=== PATIENT | male | born 1955 | race Two or more races ===

== ENCOUNTER 2019-09-29 17:54 | Inpatient (IN) | payer MEDICARE, MEDICAID ==
[~2019-09-29] VITALS: Ht 170.2 cm; Wt 89.5 kg
--- NOTE | 2019-09-29 18:00 | NUR ---
"Pain in back-front started couple days ago now pain worse. Dark colored urine. Hx kidney stones" pt [id number], -sob, nad noted, vss ,pending md patterson
[2019-09-29 18:19] LABS: APPEARANCE,URINE Cloudy (CLEAR); BILIRUBIN,URINE Negative (NEGATIVE); BLOOD, URINE Large Ery/uL (NEGATIVE); COLOR,URINE Yellow (YELLOW); KETONES,URINE Negative (NEGATIVE); LEUKOCYTE ESTERASE ,URINE Small (NEGATIVE); NITRITE, URINE Positive (NEGATIVE); PH,URINE 6.5 (5.0-8.0); PROTEIN,URINE >=300 mg/dl (NEGATIVE); UGLUCOSE Negative (NEGATIVE)
[2019-09-29 18:26] LABS: BASOPHILS % (AUTO) 0.4 % (0.0-2.0); HEMATOCRIT 35 % (39-51); HEMOGLOBIN 11.4 g/dL (13.5-17.5); LYMPHOCYTES # (AUTO) 1.1 /CMM (0.8-4.8); LYMPHOCYTES % (AUTO) 9.1 % (20.0-44.0); MEAN CORPUSCULAR HGB CONC 33 g/dl (31.0-36.0); MEAN CORPUSCULAR VOLUME 93 fL (80-96); MONOCYTES % (AUTO) 8.3 % (2.0-12.0); NEUTROPHILS # (AUTO) 9.9 /CMM (1.8-8.9); NEUTROPHILS % (AUTO) 81.2 % (43.0-81.0); PLATELET COUNT (AUTO) 233 /CMM (150-450); RED BLOOD CELL COUNT(AUTO) 3.74 MIL/uL (4.5-6.0); WHITE BLOOD COUNT (AUTO) 12.2 K/uL (4.3-11.0)
[2019-09-29] MEDS ORDERED: IV NS 0.9% 1,000 ML BAG IV ONE (18:30)
[2019-09-29 18:42] LABS: BACTERIA,URINE 4+ /HPF (None Seen); RBC,URINE 51-80 /HPF (0-2); SQUAMOUS EPITHELIAL CELL,UR Few /HPF (None Seen); WBC,URINE 21-50 /HPF (0-3)
[2019-09-29 18:47] LABS: CALCIUM, SERUM 9.3 mg/dL (8.5-10.1); CARBON DIOXIDE 21 mmol/L (21-32); CHLORIDE 99 mmol/L (98-107); CREATININE 1.1 mg/dL (0.6-1.3); GLUCOSE 170 mg/dL (74-106); SODIUM SERUM 133 mmol/L (136-145); UREA NITROGEN, BLOOD 15 mg/dL (7-18)
[2019-09-29 18:52] LABS: ALANINE AMINOTRANSFERASE 23 U/L (12-78); ALBUMIN 3.3 g/dL (3.4-5.0); ALKALINE PHOSPHATASE 88 U/L (46-116); ASPARTATE AMINOTRANSFERASE 23 U/L (15-37); BILIRUBIN,DIRECT 0.1 mg/dL (0.0-0.2); BILIRUBIN,TOTAL 0.2 mg/dL (0.2-1.0); TOTAL PROTEIN, SERUM 7.7 g/dL (6.4-8.2)
[2019-09-29] MEDS ORDERED: CEFTRIAXONE 1GM BAG (ER ONLY) 1 GM/50 ML PIGGYBACK IV ONE (19:00)
[2019-09-29] MEDS ORDERED: IV NS 0.9% 1,000 ML IV ONE (19:00)
--- NOTE | 2019-09-29 19:00 | NUR ---
CALLED FOR TELE BED
[2019-09-29] MEDS ORDERED: ACETAMINOPHEN 325 MG TABLET ONE (19:18)
[2019-09-29] MEDS ORDERED: CEFTRIAXONE 1GM BAG (ER ONLY) 50 ML IV ONE (19:18)
[2019-09-29] MEDS ORDERED: ACETAMINOPHEN 325 MG TABLET PO ONE (19:30)
--- NOTE | 2019-09-29 19:50 | NUR ---
EPIC DR VINCENT PAGED
--- NOTE | 2019-09-29 20:01 | NUR ---
DR. MENDEZ ON THE PHONE WITH DR. VINCENT
--- NOTE | 2019-09-29 20:23 | NUR ---
RECIEVED BED 315-1
[2019-09-29] MEDS ORDERED: MAGNESIUM HYDROXIDE 30 ML UDC PO PRN (20:30)
[2019-09-29] MEDS ORDERED: ZOLPIDEM TARTRATE 5 MG TABLET PO PRN (20:30)
[2019-09-29] MEDS ORDERED: ACETAMINOPHEN 325 MG TABLET PO PRN (20:30)
[2019-09-29] MEDS ORDERED: MAG HYDROX/AL HYDROX/SIMETH 30 ML UDC PO PRN (20:30)
[2019-09-29] MEDS ORDERED: HYDROCODONE/APAP 5/325MG 1 EACH TABLET PO PRN (20:30)
[2019-09-29] MEDS ORDERED: ONDANSETRON HCL/PF 4 MG/2 ML VIAL IVP PRN (20:30)
[2019-09-29] MEDS ORDERED: Z GUARD REMEDY 2 OZ OINT TP PRN (20:30)
--- NOTE | 2019-09-29 20:36 | NUR ---
REPORT GIVEN TO SHANTHI SMIHT FOR SEAN PT WILL BE TRANSPORTED TO 3RD FLOOR
--- NOTE | 2019-09-29 21:08 | NUR ---
PT TRANSFERRED TO MS BED 315
[2019-09-29 21:15] VITALS: BP 126/66
--- NOTE | 2019-09-29 21:19 | NUR ---
PT TRANSPORTED TO 3RD FLOOR
--- NOTE | 2019-09-29 21:20 | NUR ---
[employer] NOTES PATIENT ARRIVED ON THE UNIT AT 2114 VIA WHEELCHAIR, THEN AMBULATED TO BED WITH STEADY GAIT. DX WITH SEPSIS SECONDARY TO UTI. NO IV FLUIDS HUNG YET. PATIENT AND SIGNIFICANT OTHER, RENETTA, STATE SKIN IS INTACT, REFUSES TO DO FULL SKIN ASSESSMENT. PATIENT IS A/O X 4. NO SIGNS OF RESPIRATORY DISTRESS. RESPIRATIONS EVEN AND UNLABORED WITH EQUAL RISE AND FALL OF CHEST. IV SITE LEFT ANTECUBITAL G20 INTACT AND PATENT, NO INFECTION/INFILTRATION. ON TELE MONITOR: SINUS RHYTHM 73. PATIENT DENIES PAIN WHEN ASKED. PATIENT ABLE TO AMBULATE TO RESTROOM TO URINATE WITH STEADY GAIT. VITALS UPON ADMISSION: BP 126/66, PULSE 72, RESP 20, TEMP 98.0, O2 SAT 97% ON RA. PATIENT WISHES TO BE FULL CODE. SIGNIFICANT OTHER, JAM, AT BED SIDE. BELONGINGS CHECKED BY ASSIGNED CONSTRUCTION MATERIALS TESTER. SAFETY PRECAUTIONS IMPLEMENTED; CALL LIGHT WITHIN REACH, BED LOWEST POSITION, BED LOCKED, BILATERAL UPPER SIDE RAILS UP. WILL CONTINUE TO MONITOR AND CARRY OUT ORDERS.
[2019-09-29] MEDS: CEFTRIAXONE 1 G in IV D5W 50 ML IV SCH (21:30)
[2019-09-29 21:45] VITALS: BP 126/66
--- NOTE | 2019-09-29 21:50 | NUR ---
RN NOTES 7330 DR. VINCENT AT BED SIDE SPEAKING TO SIGNIFICANT OTHER AND FAMILY.
--- NOTE | 2019-09-29 22:05 | NUR ---
RN NOTES CALLED [facility]FORATOR [facility] TO VERIFY MEDICATIONS. THEY SAY THEY CANNOT VERIFY DUE TO A SYSTEM MALFUNCTION AT THIS TIME. MEDICATIONS STILL NOT VERIFIED, CHARGE NURSE AWARE, SHE WILL INFORM NURSING BOARD MACHINE SET UP OPERATOR. PER CHARGE NURSEKIKI WILL OVERRIDE MEDICATION. CHARGE NURSEKIKI, STATES TO ADMINISTER THE NS AND ADMINISTER THE ANTIBIOTIC SHE PREPARED FOR THE PATIENT. WILL GO AHEAD AND ADMINISTER IVF PER CHARGE NURSE.
[2019-09-29] MEDS ORDERED: CEFTRIAXONE 1 G VIAL ONE (22:20)
[2019-09-29] MEDS: IV NS 0.9% 1,000 ML IV SCH (23:54)
[2019-09-30] VITALS (8 sets, daily range): BP systolic 135–160; BP diastolic 65–86
[2019-09-30] MEDS: IV NS 0.9% 1,000 ML IV SCH ×3 (04:29→20:32)
--- NOTE | 2019-09-30 04:41 | NUR ---
RN NOTES PATIENT REQUESTED NORCO FOR PAIN 7/10 LOWER BACK. EXPLAINED THE RISKS OF TAKING NORCO. PATIENT UNDERSTANDS THE RISKS.
--- NOTE | 2019-09-30 06:35 | NUR ---
RN CLOSING NOTES PATIENT ASLEEP, RESTING IN BED, EASILY AROUSABLE. NO SIGNS OF RESPIRATORY DISTRESS. RESPIRATIONS EVEN AND UNLABORED WITH EQUAL RISE AND FALL OF CHEST. IV SITE REMAINS INTACT AND PATENT, IVF IN PLACE ORDERED, NO INFILTRATION/INFECTION NOTED. NO SIGNS OF FACIAL GRIMACING INDICATING PAIN/DISCOMFORT AT THIS TIME. PATIENT IS AFEBRILE. SAFETY PRECAUTIONS IMPLEMENTED; CALL LIGHT WITHIN REACH, BED LOWEST POSITION, BED LOCKED, BILATERAL UPPER SIDE RAILS UP. WILL CONTINUE TO MONITOR AND THEN WILL ENDORSE TO DAYSHIFT NURSE FOR CONTINUITY OF CARE.
[2019-09-30 07:14] LABS: BASOPHILS % (AUTO) 0.4 % (0.0-2.0); EOSINOPHILS % (AUTO) 1.2 % (0.0-6.0); HEMATOCRIT 31 % (39-51); HEMOGLOBIN 10.2 g/dL (13.5-17.5); LYMPHOCYTES # (AUTO) 1.1 /CMM (0.8-4.8); LYMPHOCYTES % (AUTO) 12.4 % (20.0-44.0); MEAN CORPUSCULAR HGB CONC 33 g/dl (31.0-36.0); MEAN CORPUSCULAR VOLUME 92 fL (80-96); MONOCYTES # (AUTO) 1.1 /CMM (0.1-1.30); MONOCYTES % (AUTO) 12.5 % (2.0-12.0); NEUTROPHILS # (AUTO) 6.6 /CMM (1.8-8.9); NEUTROPHILS % (AUTO) 73.5 % (43.0-81.0); PLATELET COUNT (AUTO) 212 /CMM (150-450); RED BLOOD CELL COUNT(AUTO) 3.32 MIL/uL (4.5-6.0)
[2019-09-30 07:39] LABS: CALCIUM, SERUM 8.4 mg/dL (8.5-10.1); CARBON DIOXIDE 24 mmol/L (21-32); CHLORIDE 103 mmol/L (98-107); CREATININE 0.9 mg/dL (0.6-1.3); GLUCOSE 130 mg/dL (74-106); MAGNESIUM 1.5 mg/dL (1.8-2.4); PHOSPHORUS 2.2 mg/dL (2.5-4.9); POTASSIUM 3.7 mmol/L (3.5-5.1); SODIUM SERUM 134 mmol/L (136-145); UREA NITROGEN, BLOOD 12 mg/dL (7-18)
--- NOTE | 2019-09-30 07:46 | NUR ---
RN Notes Patient resting in bed, supine position; No complaints of any pain/discomfort, NS running at 125 ml/hr on left arm; Call light within reach.
[2019-09-30 07:54] LABS: CHOLESTEROL 149 mg/dL (<200); FERRITIN 96 ng/mL (8-388); LDL 98 mg/dL (0-99); TRIGLYCERIDES 192 mg/dL (30-150)
[2019-09-30 07:56] LABS: HDL CHOLESTEROL < 10 mg/dL (40-60)
[2019-09-30 08:12] LABS: IRON, SERUM 15 ug/dl (50-175); TOTAL IRON BINDING CAPACITY 289 ug/dl (250-450)
[2019-09-30] MEDS: Magnesium 1GM/D5W 100ML PREMIX 100 ML IV SCH ×2 (10:18→11:40)
[2019-09-30] MEDS ORDERED: K PHOS NEUTRAL 250 MG TABLET PO ONE (13:00)
--- NOTE | 2019-09-30 18:42 | NUR ---
RN NOTES PT NOTED WITH LOW LEVEL MAGNESIUM 1.5 TODAY. ADMINISTERED MAGNESIUM 1G/100ML D5W IVPB X 2 DOSES ORDERED. WILL CONTINUE TO MONITOR.
--- NOTE | 2019-09-30 18:46 | NUR ---
MS RN CLOSING NOTES PATIENT IN BED AWAKE AND WATCHING TV AT THIS TIME WITH SIGNIFICANT OTHER AT BEDSIDE. A/O X4, SAME ABLE TO MAKE NEEDS KNOWN. ON ROOM AIR, TOLERATING WELL WITH NO SIGNS OF RESPIRATORY DISTRESS NOTED THROUGHOUT THE DAY. IV ACCESS @ LAC G# 20 INTACT AND PATENT, IVF OF NS @ 125ML/HR INFUSING WELL, NO S/S OF INFILTRATIONS NOTED AT SITE. ALL NEEDS AND CARE ATTENDED WELL. SAFETY MEASURES MAINTAINED: CALL LIGHT WITHIN REACH, BED IN LOWEST LOCKED POSITION WITH UPPER SIDE RAILS UP. WILL ENDORSE TO COMMUNITY HEALTH PROMOTER NURSE FOR CONTINUITY OF CARE
--- NOTE | 2019-09-30 19:24 | NUR ---
MS RN RECEIVE PT IN BED A/O X 3 AWAKE, FAMILY AT BEDSIDE STABLE AND NOT IN DISTRESS SAFETY MEASURES AT ALL TIMES WILL CONT TO MTR
[2019-09-30] MEDS: CEFTRIAXONE 1 G in IV D5W 50 ML IV SCH (20:06)
[2019-10-01] MEDS: IV NS 0.9% 1,000 ML IV SCH (04:48)
--- NOTE | 2019-10-01 06:10 | NUR ---
MS RN PT ASLEEP AND EASILY AWAKEN, NO C/O OF PAIN AT THIS TIME. NEEDS ATTENDED AND ANTICIPATED. KEPT CLEAN, DRY AND COMFORTABLE AT ALL TIMES. RESPIRATIONS EVEN AND UNLABORED. SAFETY MEASURES AT ALL TIMES. WILL ENDORSE NEXT SHIFT POC.
--- NOTE | 2019-10-01 07:10 | NUR ---
MS RN NOTES RECEIVED PT IN BED, AWAKE. A/O X3-4. HUNGARIAN SPEAKING BUT SIGNIFICANT OTHER AT BEDSIDE AND CAN UNDERSTAND [place]. PT TOLERATING RA, WITH NO ACUTE RESPIRATORY DISTRESS NOTED. PT DENIES ANY PAIN OR DISCOMFORT AT THIS TIME. PT DENIES ANY CONCERNS OR QUESTIONS WELL AT THIS MOMENT. IVF NS @ 125ML/HR TO LACG20, INTACT AND FLUID INFUSING WELL. PT KEPT COMFORTABLE. CALL LIGHT KEPT WITHIN REACH. PT'S BED IN LOWEST, LOCKED POSITION WITH SR X3. WILL CONTINUE PLAN OF CARE.
[2019-10-01] MEDS ORDERED: IV NS 0.9% 1,000 ML IV PRN (07:46)
[2019-10-01 08:00] VITALS: BP 170/93
[2019-10-01 08:02] LABS: CALCIUM, SERUM 8.7 mg/dL (8.5-10.1); CREATININE 0.8 mg/dL (0.6-1.3); MAGNESIUM 1.8 mg/dL (1.8-2.4); PHOSPHORUS 3.2 mg/dL (2.5-4.9); POTASSIUM 4.1 mmol/L (3.5-5.1)
[2019-10-01] MEDS ORDERED: VALSARTAN 80 MG TABLET PO SCH (11:30)
[2019-10-01] MEDS ORDERED: FAMO40TA7 PO (11:33)
[2019-10-01] MEDS ORDERED: ATOR40TA PO (11:33)
[2019-10-01] MEDS ORDERED: GABA-534 PO (11:33)
[2019-10-01] MEDS ORDERED: TRAM50TA2 PO (11:33)
[2019-10-01] MEDS ORDERED: TAMS-12 PO (11:33)
[2019-10-01] MEDS ORDERED: SERT100T12 PO (11:33)
[2019-10-01] MEDS ORDERED: ALPR0.255 PO (11:33)
[2019-10-01] MEDS ORDERED: VALS320T16 PO (11:33)
--- NOTE | 2019-10-01 13:20 | NUR ---
MS RN NOTES US OF KIDNEYS RESULTED AND FORWARDED TO DR EDGAR LIAO. NO NEW ORDERS NOTED AT THIS TIME. PT AND AT BEDSIDE MADE AWARE OF REGIONAL SALES COORDINATOR/TS' RESPONSE. PT CAN GO HOME TODAY LATER THIS AFTERNOON.
[2019-10-01] MEDS ORDERED: SOD FERRIC GLUC 125 MG in IV NS 0.9% 100 ML IV SCH (14:00)
[2019-10-01 16:00] VITALS: BP 148/75
[2019-10-01] MEDS ORDERED: CEPH-569 PO (16:16)
--- NOTE | 2019-10-01 16:55 | NUR ---
MS ELECTRONIC DIE MAKER NOTES PT TO BE DISCHARGED HOME. PT IN BED. AWAKE. A/O X3-4. GERMAN SPEAKING BUT SIGNIFICANT OTHER AT BEDSIDE AND CAN UNDERSTAND LIBERIAN. PT TOLERATING RA, WITH NO ACUTE RESPIRATORY DISTRESS NOTED. PT DENIES ANY PAIN OR DISCOMFORT AT THIS TIME. PIV TO LAC REMOVED AND APPLIED DRESSING. ALL NEEDS AND CARE PROVIDED AND ATTENDED. SKIN INTACT, NO PICTURES TAKEN AND FILED ON THE CHART. DISCHARGE INSTRUCTIONS AND INVENTORY LIST, SIGNED BY . ALL BELONGINGS WITH PT. PT LEFT THE UNIT AT 1645. HOSPITALIST/CALENDER RUNNER/TS AND CN/VIKAS AWARE OF DISCHARGE.
== END 2019-10-01 16:40 | disposition home or self-care (01) | DRG 872 ==
LOC: ER 17:58 → TELE 20:43 → MED 09-30 14:59
PROVIDERS: ADMIT Family Medicine; ATTEND Nurse Practitioner Acute Care
DX: A41.9 Sepsis, unspecified organism (principal); N39.0 Urinary tract infection, site not specified; E44.1 Mild protein-calorie malnutrition; E87.1 Hypo-osmolality and hyponatremia; E87.2 Acidosis; I10 Essential (primary) hypertension; B96.20 Unspecified Escherichia coli [E. coli] as the cause of diseases classified elsewhere; D50.9 Iron deficiency anemia, unspecified; D72.829 Elevated white blood cell count, unspecified; R73.9 Hyperglycemia, unspecified; E88.09 Other disorders of plasma-protein metabolism, not elsewhere classified; E86.1 Hypovolemia; Z68.30 Body mass index [BMI] 30.0-30.9, adult
CPT/HCPCS: 36415; 71045-TC; 76770-TC; 80048-TC; 80061-TC; 80076-TC; 81000-TC; 82728-TC; 83540-TC; 83605-TC; 83735-TC; 84100-TC; 84484-TC; 85025-TC; 85730-TC; 87040-TC; 87081-TC; 87086-TC; 87186-TC; G0378; J0696; J2916; J3475; J7030; J7060

== ENCOUNTER 2019-10-04 18:45 | Emergency (ER) | payer MEDICAID, MEDICARE ==
[~2019-10-04] VITALS: Ht 170.2 cm; Wt 90.3 kg
[~2019-10-04 18:45] MED LIST: ALPR0.255 PO; ATOR40TA PO; CEPH-569 PO; FAMO40TA7 PO; GABA-534 PO; SERT100T12 PO; TAMS-12 PO; TRAM50TA2 PO; VALS320T16 PO
[2019-10-04 18:58] VITALS: BP 159/61
[2019-10-04] MEDS ORDERED: CEFTRIAXONE 500 MG VIAL ONE (20:19)
[2019-10-04] MEDS ORDERED: LIDOCAINE /MPF 1% VIAL 5 ML VIAL ONE (20:20)
[2019-10-04] MEDS ORDERED: CEFTRIAXONE 500 MG VIAL IM ONE (20:30)
== END 2019-10-04 21:02 | disposition home or self-care (01) ==
LOC: ER 18:47
DX: L03.114 Cellulitis of left upper limb (principal); I10 Essential (primary) hypertension; Z79.899 Other long term (current) drug therapy
CPT/HCPCS: 93971; 96372; 99284; J0696; J3490

== ENCOUNTER 2019-11-09 12:37 | Inpatient (IN) | payer MEDICARE, MEDICAID ==
[~2019-11-09] VITALS: Ht 182.9 cm; Wt 81.6 kg
[2019-11-09] MEDS ORDERED: MORPHINE SULFATE INJ 2 MG/ML DISP.SYRIN IV ONE (13:00)
[2019-11-09] MEDS ORDERED: ONDANSETRON HCL/PF 4 MG/2 ML VIAL IVP ONE (13:00)
[2019-11-09] MEDS ORDERED: IV NS 0.9% 1,000 ML BAG IV ONE (13:00)
--- NOTE | 2019-11-09 13:15 | NUR ---
PATIENT ARRIVED AT UNIT WITH C/O R FLANK PAIN WITH HEMATURIA AND FEVER SINCE YESTERDAY. ACCOMPANIED BY . WILL CONTINUE TO MONITOR
[2019-11-09 13:20] LABS: BASOPHILS # (AUTO) 0.1 /CMM (0.0-0.2); BASOPHILS % (AUTO) 0.3 % (0.0-2.0); EOSINOPHILS % (AUTO) 0.3 % (0.0-6.0); HEMATOCRIT 32 % (39-51); HEMOGLOBIN 10.6 g/dL (13.5-17.5); LYMPHOCYTES # (AUTO) 2.1 /CMM (0.8-4.8); LYMPHOCYTES % (AUTO) 11.5 % (20.0-44.0); MEAN CORPUSCULAR HGB CONC 33 g/dl (31.0-36.0); MEAN CORPUSCULAR VOLUME 91 fL (80-96); MONOCYTES # (AUTO) 1.3 /CMM (0.1-1.30); NEUTROPHILS # (AUTO) 14.7 /CMM (1.8-8.9); NEUTROPHILS % (AUTO) 80.9 % (43.0-81.0); PLATELET COUNT (AUTO) 346 /CMM (150-450); RED BLOOD CELL COUNT(AUTO) 3.54 MIL/uL (4.5-6.0); WHITE BLOOD COUNT (AUTO) 18.2 K/uL (4.3-11.0)
--- NOTE | 2019-11-09 13:20 | NUR ---
IV LINE ESTABLISHED. ELECTROMECHANISMS DESIGN DRAFTER AT BEDSIDE FOR BLOOD DRAW
--- NOTE | 2019-11-09 13:21 | NUR ---
URINE COLLECTED AND SENT TO LAB
[2019-11-09 13:27] LABS: APPEARANCE,URINE Cloudy (CLEAR); BILIRUBIN,URINE Negative (NEGATIVE); BLOOD, URINE Large Ery/uL (NEGATIVE); COLOR,URINE Dark (YELLOW); KETONES,URINE Negative (NEGATIVE); LEUKOCYTE ESTERASE ,URINE Small (NEGATIVE); NITRITE, URINE Negative (NEGATIVE); PH,URINE 5.5 (5.0-8.0); PROTEIN,URINE >=300 mg/dl (NEGATIVE); UGLUCOSE Negative (NEGATIVE); UROBILINOGEN,URINE 0.2 EU/dL (0.2)
[2019-11-09] MEDS ORDERED: PIPERACILLIN /TAZOBACTAM 3.375 G in IV D5W 50 ML IV ONE (13:30)
[2019-11-09 13:31] LABS: CALCIUM, SERUM 9.2 mg/dL (8.5-10.1); CREATININE 0.8 mg/dL (0.6-1.3); POTASSIUM 3.5 mmol/L (3.5-5.1)
[2019-11-09 13:34] LABS: RBC,URINE 21-50 /HPF (0-2)
[2019-11-09 13:35] LABS: BACTERIA,URINE Moderate /HPF (None Seen); MUCUS,URINE Moderate /LPF (None Seen); SQUAMOUS EPITHELIAL CELL,UR Few /HPF (None Seen); WBC,URINE 21-50 /HPF (0-3)
[2019-11-09 13:37] LABS: ALBUMIN 3.4 g/dL (3.4-5.0); BILIRUBIN,DIRECT 0.1 mg/dL (0.0-0.2); BILIRUBIN,TOTAL 0.7 mg/dL (0.2-1.0); TOTAL PROTEIN, SERUM 7.4 g/dL (6.4-8.2)
[2019-11-09] MEDS ORDERED: ONDANSETRON HCL/PF 4 MG/2 ML VIAL ONE (13:54)
[2019-11-09] MEDS ORDERED: MORPHINE SULFATE INJ 4 MG/ML DISP.SYRIN ONE (13:55)
--- NOTE | 2019-11-09 14:21 | NUR ---
urine sample provided by patient yellow in color. no clots noted, no sediments noted. verified reynaga cath order with dr Cross and verbalized to hold off on placing FC at this time. will continue to monitor
[2019-11-09] MEDS ORDERED: MAG HYDROX/AL HYDROX/SIMETH 30 ML UDC PO PRN (15:00)
[2019-11-09] MEDS ORDERED: HYDROCODONE/APAP 5/325MG 1 EACH TABLET PO PRN (15:00)
[2019-11-09] MEDS ORDERED: ZOLPIDEM TARTRATE 5 MG TABLET PO PRN (15:00)
[2019-11-09] MEDS ORDERED: TRAMADOL HCL 50 MG TABLET PO PRN (15:00)
[2019-11-09] MEDS ORDERED: ACETAMINOPHEN 325 MG TABLET PO PRN (15:00)
[2019-11-09] MEDS ORDERED: MAGNESIUM HYDROXIDE 30 ML UDC PO PRN (15:00)
[2019-11-09] MEDS ORDERED: ALPRAZOLAM 0.25 MG TABLET PO PRN (15:00)
[2019-11-09] MEDS ORDERED: ONDANSETRON HCL/PF 4 MG/2 ML VIAL IVP PRN (15:00)
[2019-11-09] MEDS ORDERED: Z GUARD REMEDY 2 OZ OINT TP PRN (15:00)
--- NOTE | 2019-11-09 15:01 | NUR ---
REPORT GIVEN TO ALVAREZ SMITH FOR SEAN
--- NOTE | 2019-11-09 15:02 | NUR ---
PATIENT TRANSFERRED TO [facility] VIA [facility]. NO ACUTE DISTRESS. NO CHANGES IN LOC.
[2019-11-09 15:18] VITALS: BP 150/84
--- NOTE | 2019-11-09 15:18 | NUR ---
MS RN ADMITTING NOTE PATIENT ARRIVED BY GURNEY TO ROOM. PATIENT WITH STEADY GAIT AMBULATING TO BED. PATIENT IN NO ACUTE DISTRESS. NO SOB NOTED. PATIENT BREATHING IS EVEN AND UNLABORED. PATIENT IV ACCESS PATENT AND INTACT. PATIENT FAMILY AT THE BEDSIDE. PATIENT SAFETY PRECAUTIONS IN PLACE. PATIENT BED IS LOCKED AND IN LOWEST POSITION. CALL LIGHT WITHIN REACH. WILL CONTINUE TO MONITOR. MD AWARE AND NOTIFIED OF PATIENT ARRIVAL. ORDERS IN PLACE, WILL FOLLOW UP.
--- NOTE | 2019-11-09 15:30 | NUR ---
MS RN NOTE PATIENT STATED HE WANTED TO SPEAK WITH DR. VINCENT. NOTIFIED AND SPOKE WITH DR. CARLTON MD STATED "OKAY I WILL COME SEE THE PATIENT TODAY".
[2019-11-09 16:00] VITALS: BP 150/84
--- NOTE | 2019-11-09 16:00 | NUR ---
MS RN NOTE PATIENT REFUSED TO HAVE SKIN ASSESSED. EDUCATED PATIENT ON RISKS VS BENEFITS. PATIENT STILL CONTINUED TO REFUSE.
[2019-11-09] MEDS: CEFTRIAXONE 1 G in IV D5W 50 ML IV SCH (16:26)
[2019-11-09] MEDS: IV NS 0.9% 1,000 ML IV PRN (16:27)
--- NOTE | 2019-11-09 17:40 | NUR ---
MS RN NOTE PATIENT SEEN AND EVALUATED BY DR. VINCENT. WILL CONTINUE TO MONITOR.
--- NOTE | 2019-11-09 18:45 | NUR ---
MS RN CLOSING NOTE PATIENT IN BED RESTING COMFORTABLY. FAMILY AT THE BEDSIDE. PATIENT IN NO ACUTE DISTRESS. NO SOB NOTED. PATIENT BREATHING IS EVEN AND UNLABORED. PATIENT STATES NO PAIN AT THIS TIME. NEEDS AND CONCERNS ADDRESSED. PATIENT CONTINUED TO REFUSE SKIN ASSESSMENT. PATIENT SAFETY PRECAUTIONS IN PLACE. PATIENT KEPT CLEAN, DRY, AND COMFORTABLE THROUGHOUT SHIFT. PATIENT BED IS LOCKED AND IN LOWEST POSITION. CALL LIGHT WITHIN REACH. WILL ENDORSE CARE TO PM SHIFT FOR SEAN.
--- NOTE | 2019-11-09 19:05 | NUR ---
RN MS OPENING NOTES RECEIVED PATIENT IN BED AWAKE ALERT AND ORIENTED X4, RESPIRATIONS EVEN AND UNLABORED WITH EQUAL RISE AND FALL OF CHEST, DENIES ANY PAIN OR DISCOMFORT AT THIS TIME,IV SITE TO RIGHT AC #18 G INTACT AND PATENT, IVF RUNNING ORDERED, ORIENTED TO STAFF AND CALL LIGHT AND KEPT WITHIN REACH, SAFETY PRECAUTIONS IN PLACE, LOW BED AND LOCKED, AT BEDSIDE DISCUSSED PLAN OF CARE, ALL NEEDS ATTENDED FLUIDS OFFERED, WILL CONTINUE TO MONITOR AND ADDRESS NEEDS AT THIS TIME REMAINS COMFORTABLE.
[2019-11-09 20:00] VITALS: BP 145/61
[2019-11-09 20:04] VITALS: BP 145/61
[2019-11-09] MEDS: GABAPENTIN 300 MG CAPSULE PO SCH (21:25)
[2019-11-10] MEDS: IV NS 0.9% 1,000 ML IV PRN ×2 (02:05→18:11)
[2019-11-10 06:26] LABS: BASOPHILS % (AUTO) 0.2 % (0.0-2.0); EOSINOPHILS % (AUTO) 0.7 % (0.0-6.0); HEMATOCRIT 29 % (39-51); HEMOGLOBIN 9.7 g/dL (13.5-17.5); LYMPHOCYTES # (AUTO) 2.6 /CMM (0.8-4.8); LYMPHOCYTES % (AUTO) 15.3 % (20.0-44.0); MEAN CORPUSCULAR HGB CONC 33 g/dl (31.0-36.0); MEAN CORPUSCULAR VOLUME 91 fL (80-96); MONOCYTES # (AUTO) 1.2 /CMM (0.1-1.30); MONOCYTES % (AUTO) 7.3 % (2.0-12.0); NEUTROPHILS # (AUTO) 12.7 /CMM (1.8-8.9); NEUTROPHILS % (AUTO) 76.5 % (43.0-81.0); PLATELET COUNT (AUTO) 315 /CMM (150-450); RED BLOOD CELL COUNT(AUTO) 3.22 MIL/uL (4.5-6.0); WHITE BLOOD COUNT (AUTO) 16.7 K/uL (4.3-11.0)
[2019-11-10 06:29] LABS: CALCIUM, SERUM 8.5 mg/dL (8.5-10.1); CREATININE 0.8 mg/dL (0.6-1.3); MAGNESIUM 1.7 mg/dL (1.8-2.4); PHOSPHORUS 2.1 mg/dL (2.5-4.9); POTASSIUM 3.2 mmol/L (3.5-5.1)
--- NOTE | 2019-11-10 06:49 | NUR ---
RN MS CLOSING NOTES PATIENT IN BED AWAKE ALERT AND ORIENTED X4, RESPIRATIONS EVEN AND UNLABORED WITH EQUAL RISE AND FALL OF CHEST, DENIES ANY PAIN OR DISCOMFORT AT THIS TIME,IV SITE TO RIGHT AC #18 G INTACT AND PATENT, IVF RUNNING ORDERED, CALL LIGHT KEPT WITHIN REACH, FLUIDS AND TOILETING OFFERED, SAFETY PRECAUTIONS IN PLACE, LOW BED AND LOCKED, AT BEDSIDE DISCUSSED PLAN OF CARE, ALL NEEDS ATTENDED WILL CONTINUE TO MONITOR AND ADDRESS NEEDS AT THIS TIME REMAINS COMFORTABLE WILL ENDORSE TO NEXT SHIFT.
--- NOTE | 2019-11-10 07:15 | NUR ---
MS RN NOTES PATIENT IN BED ALERT ORIENTED X 3. NO ACUTE DISTRESS NOTED. BREATHING UNLABORED. IV ACCESS PATENT AND INTACT, NO REDNESS NO SWELLING NOTED. SAFETY MEASURES IN PLACE. CALL LIGHT WITHIN REACH. WILL CONTINUE TO MONITOR ACCORDINGLY.
[2019-11-10 08:00] VITALS: BP 160/79
[2019-11-10 08:00] LABS: FREE PSA 0.12 ng/mL (0.00-45); PROSTATE SPECIFIC ANTIGEN SCR 2.13 ng/mL (0.00-4.00)
[2019-11-10] MEDS ORDERED: FAMOTIDINE 40 MG TABLET PO SCH (09:00)
[2019-11-10] MEDS: SERTRALINE HCL 50 MG TABLET PO SCH (09:00)
[2019-11-10] MEDS ORDERED: FAMOTIDINE (20 MG) 20 MG TABLET PO SCH (09:18)
[2019-11-10] MEDS: TAMSULOSIN 0.4 MG CAP.SR.24H PO SCH (09:23)
[2019-11-10] MEDS: ATORVASTATIN 40 MG TABLET PO SCH (09:23)
[2019-11-10] MEDS: VALSARTAN 80 MG TABLET PO SCH (09:23)
[2019-11-10] MEDS ORDERED: K PHOS NEUTRAL 250 MG TABLET PO ONE (13:00)
[2019-11-10] MEDS: Magnesium 1GM/D5W 100ML PREMIX 100 ML IV SCH ×2 (13:01→14:25)
[2019-11-10] MEDS: POTASSIUM CHLORIDE 20 MEQ TAB.PRT.SR PO SCH ×2 (13:01→14:25)
[2019-11-10] MEDS: CEFTRIAXONE 1 G in IV D5W 50 ML IV SCH (15:38)
[2019-11-10 16:00] VITALS: BP 136/70
--- NOTE | 2019-11-10 19:05 | NUR ---
MS RN NOTES PATIENT SITTING IN BED ALERT ORIENTED X 3. NO ACUTE DISTRESS NOTED. BREATHING UNLABORED. NEEDS ATTENDED AND ANTICIPATED. SAFETY MEASURES IN PLACE. CALL LIGHT WITHIN REACH. WILL ENDORSE TO NIGHT NURSE FOR CONTINUITY OF CARE.
--- NOTE | 2019-11-10 19:20 | NUR ---
EMT P: RECEIVED REPORT FROM ADALBERTO SMITH. PT IN BED, AWAKE, A/O X4, MET WITH AT BED SIDE. PT DENIES ANY PAIN OR DISCOMFORT AT THIS TIME. IV ACCESS PATENT AND FLUSHING WELL, INFUSING WITH NS AT 100 ML/HR. PT REFUSED SKIN ASSESSMENT, EDUCATION PROVIDED TO PT. GIVEN UPDATE REGARDING LAB RESULT PER REQUEST. S/B UROLOGIST/DR BARDALES, WITH RECOMMENDATION FOR IV OR PO ATB FOR 10-14DAYS, THEN OUT PATIENT URO F/U, AWAITING FINAL RESULT OF UA CULTURES. SAFETY PRECAUTIONS FOR FALL INITIATED, CALL LIGHT IN REACH, WILL CONTINUE MONITORING PT.
[2019-11-10 20:00] VITALS: BP 147/74
[2019-11-10] MEDS: GABAPENTIN 300 MG CAPSULE PO SCH (21:06)
--- NOTE | 2019-11-10 23:02 | NUR ---
Met with patient, and family at bedside. He speaks Tristanian, he lives locally with his . He is at baseline ambulatory and independent with adl's. Denies having DME and homehealth. Pcp is Dr. Carnes in [place]. Has good family support, will provide ride when discharge. Addendum: 11/10/19 at 2302 by STEPHENIE MENDEZ RN Amended: Links added.
[2019-11-11 04:00] VITALS: BP 147/74
[2019-11-11] MEDS: IV NS 0.9% 1,000 ML IV PRN (05:57)
--- NOTE | 2019-11-11 07:01 | NUR ---
EOSS: PT DENIES ANY PAIN OR DISCOMFORT. IV ACCESS REMAINS PATENT AND FLUSHING WELL, INFUSING WITH IVF ORDERED. NO S/S OF IV INFILTRATION NOTED. AWAITING FINAL RESULT OF UA CULTURE. ALL DUE MEDS ADMINISTERED. VS REMAINS STABLE, NEEDS ATTENDED. SAFETY PRECAUTIONS FOR FALL REMAINS ENGAGED, CALL LIGHT IN REACH, WILL ENDORSE TO DAY RN FOR CONTINUITY OF CARE.
[2019-11-11 07:14] LABS: BASOPHILS % (AUTO) 0.3 % (0.0-2.0); EOSINOPHILS % (AUTO) 2.4 % (0.0-6.0); HEMATOCRIT 30 % (39-51); LYMPHOCYTES # (AUTO) 2.4 /CMM (0.8-4.8); LYMPHOCYTES % (AUTO) 24.3 % (20.0-44.0); MEAN CORPUSCULAR HGB CONC 34 g/dl (31.0-36.0); MEAN CORPUSCULAR VOLUME 92 fL (80-96); MONOCYTES # (AUTO) 0.9 /CMM (0.1-1.30); MONOCYTES % (AUTO) 8.8 % (2.0-12.0); NEUTROPHILS # (AUTO) 6.3 /CMM (1.8-8.9); NEUTROPHILS % (AUTO) 64.2 % (43.0-81.0); PLATELET COUNT (AUTO) 302 /CMM (150-450); RED BLOOD CELL COUNT(AUTO) 3.23 MIL/uL (4.5-6.0); WHITE BLOOD COUNT (AUTO) 9.8 K/uL (4.3-11.0)
--- NOTE | 2019-11-11 07:35 | NUR ---
M/S RN NOTES PATIENT RESTING IN BED, ALERT ORIENTED X4. NO RESPIRATORY DISTRESS, NO C/O PAIN OR ANY DISCOMFORT AT THIS TIME. IV NS INFUSING AT 100ML/HR ON THE RAC #18G, INTACT AND PATENT. PATIENT'S NEEDS ATTENDED, BED ON LOWEST LOCKED POSITION, CALL LIGHT WITHIN REACH. WILL CONTINUE TO MONITOR. SAFETY MEASURES IN PLACE. CALL LIGHT WITHIN REACH.
[2019-11-11 08:09] LABS: CALCIUM, SERUM 8.6 mg/dL (8.5-10.1); CREATININE 0.8 mg/dL (0.6-1.3); MAGNESIUM 1.9 mg/dL (1.8-2.4); PHOSPHORUS 3.1 mg/dL (2.5-4.9); POTASSIUM 3.8 mmol/L (3.5-5.1)
[2019-11-11 08:26] VITALS: BP 145/81
[2019-11-11] MEDS: TAMSULOSIN 0.4 MG CAP.SR.24H PO SCH (08:44)
[2019-11-11] MEDS: ATORVASTATIN 40 MG TABLET PO SCH (08:44)
[2019-11-11 08:47] VITALS: BP 145/81
[2019-11-11] MEDS: VALSARTAN 80 MG TABLET PO SCH (08:47)
[2019-11-11] MEDS: SERTRALINE HCL 50 MG TABLET PO SCH (08:48)
[2019-11-11] MEDS ORDERED: LEVO500T75 PO (10:59)
--- NOTE | 2019-11-11 12:37 | NUR ---
M/S RN NOTES PATIENT DISCHARGED IN STABLE CONDITION, VSS, NO RESPIRATORY DISTRESS, NO C/O PAIN AT THIS TIME. PATIENT AND GIVEN DISCHARGE INSTRUCTIONS, VERBALIZED UNDERSTANDING. SKIN ASSESSED NO SKIN BREAKDOWN, IV REMOVED AND APPLIED PRESSURE DRESSING. BELONGINGS LIST ACCOUNTED FOR AND SIGNED. PATIENT ESCORTED TO LOBBY WITH , LEFT IN PRIVATE CAR.
== END 2019-11-11 12:25 | disposition home or self-care (01) | DRG 690 ==
LOC: ER 12:38 → MEDSG2 14:40
PROVIDERS: ADMIT Family Medicine; ATTEND Family Medicine
DX: N10 Acute pyelonephritis (principal); F17.210 Nicotine dependence, cigarettes, uncomplicated; D72.829 Elevated white blood cell count, unspecified; B96.20 Unspecified Escherichia coli [E. coli] as the cause of diseases classified elsewhere; I10 Essential (primary) hypertension; F32.9 Major depressive disorder, single episode, unspecified; E78.5 Hyperlipidemia, unspecified; N20.0 Calculus of kidney
CPT/HCPCS: 36415; 80048-TC; 80061-TC; 80076-TC; 81000-TC; 83540-TC; 83605-TC; 83735-TC; 84100-TC; 84153-TC; 84154-TC; 85025-TC; 85730-TC; 87040-TC; 87081-TC; 87086-TC; 87186-TC; G0378; J0696; J2270; J2405; J2543; J3475; J7030; J7060